=== PATIENT | female | born 1990 | race Two or more races ===

== ENCOUNTER 2024-06-19 11:32 | Emergency (ER) | payer MEDICAID, SELFPAY ==
[2024-06-19 11:33] VITALS: BMI 31.2
--- NOTE | 2024-06-19 12:33 | PC.NURSE ---
CALLED PATIENT IN THE LOBBY AND OUTSIDE, NO ANSWER RECEIVED FROM PATIENT.
--- NOTE | 2024-06-19 12:49 | PC.NURSE ---
STAFF CALLED PATIENT IN THE LOBBY AND OUTSIDE, NO ANSWER RECEIVED.
--- NOTE | 2024-06-19 13:08 | PC.NURSE ---
CALLED PATIENT IN THE LOBBY AND OUTSIDE, NO ANSWERS RECEIVED.
--- NOTE | 2024-06-19 13:14 | PC.NURSE ---
PT LBMS FROM CLAUDIA
== END 2024-06-19 13:12 | disposition left against medical advice (07) ==
LOC: SERX 13:20
PROVIDERS: Emergency Provider Family Medicine
DX: Z53.21 Procedure and treatment not carried out due to patient leaving prior to being seen by health care provider (principal)

== ENCOUNTER 2024-07-09 02:23 | Emergency (ER) | payer MEDICAID, SELFPAY ==
[2024-07-09 02:24] VITALS: BMI 31.4
[2024-07-09 02:30] VITALS: BP 117/62; PULSE 122; RESP 19; TEMP 37.2; O2SAT 100
--- NOTE | 2024-07-09 02:32 | EKG_ITS ---
[facility] (Formerly [facility])[3] Test Date: 2024-07-09 Pat Name: BRITTANY MCGEE Department: Room: - Gender: Female General Office Clerk: : 1990 Requested By: ED Temporary Provider Order Number: [id number] Reading MD: ED Temporary Provider Measurements Intervals [place] Rate: 107 P: 27 KS: 161 QRS: 3 QRSD: 94 T: 34 QT: 344 QTc: 460 Interpretive Statements SINUS TACHYCARDIA POSSIBLE ANTERIOR MYOCARDIAL INFARCTION , PROBABLY OLD [30 ms Q WAVE IN V3/V4, OR R < 0.2 mV IN V4] ABNORMAL RHYTHM ECG No previous ECG available for comparison /store/S0/[id number]/ecg/[id number].pdf
[2024-07-09] MEDS: NAPROXEN 250 MG TABLET 500 MG PO (03:25)
[2024-07-09] MEDS: METOCLOPRAMIDE 5 MG TABLET 10 MG PO (03:25)
[2024-07-09] MEDS: AMOXICILLIN/POT CLAV 875 TABLET 1 TAB PO (03:26)
--- NOTE | 2024-07-09 04:31 | PD.EDDENTL ---
ED Dental RME/HPI General Chief complaint: Headache Stated complaint: HEADACHE Time Seen by Provider: 07/09/24 03:01 Arrival date/time: 07/09/24 02:23 33F with no significant PMH presents to ED with 1 week of R-sided dental pain and BENNETT. Patient has been taking baby aspirins w/o relief. While in ED, patient had some SOB and crying/anxiety. Limitations: no limitations Related Data Previous Rx's ?Medication ?Instructions ?Recorded cyclobenzaprine 10 mg tablet 10 mg PO TID PRN muscle spasm #30 02/23/19 tabs hydrocodone 5 mg-acetaminophen 325 1 tab PO BID PRN pain #6 tabs 02/23/19 mg tablet (Lefors) ibuprofen 800 mg tablet 800 mg PO TID PRN pain #30 tabs 02/23/19 amoxicillin 500 mg tablet 500 mg PO TID #30 tabs 04/05/19 ibuprofen 600 mg tablet 600 mg PO Q6H PRN pain #60 tabs 04/05/19 amoxicillin 875 mg-potassium 1 tab PO BID 7 days #14 tabs 07/09/24 clavulanate 125 mg tablet Allergies Allergy/AdvReac Type Severity Reaction Status Date / Time No Known Allergies Allergy Verified 07/09/24 02:24 Review of Systems Review of Systems Systems Reviewed: All systems reviewed, normal except as documented Constitutional Constitutional: Reports system reviewed and no additional complaints, except as documented, Reports as per HPI, Denies fever(s) and Reports headache(s) ENT Ears, Nose, Mouth, and Throat: Reports as per HPI, Reports dental pain, Denies disequilibrium and Reports headache(s) Cardiovascular Cardiovascular: Reports system reviewed and no additional complaints, except as documented, Denies chest pain and Denies dyspnea Respiratory Respiratory: Reports system reviewed and no additional complaints, except as documented, Denies cough and Denies dyspnea Gastrointestinal Gastrointestinal: Reports system reviewed and no additional complaints, except as documented, Denies abdominal pain, Denies nausea and Denies vomiting Neurologic Neurologic: Reports system reviewed and no additional complaints, except as documented, Denies confusion, Denies disequilibrium and Reports headache(s) Psychiatric Psychiatric: Denies confusion Past Medical History Past Medical History NEUROLOGIC: Negative Neurological Disorders or Seizures CARDIAC: Negative Cardiac Disorders or Congestive Heart Failure RESPIRATORY: Negative Chronic Obstructive Pulmonary Disease (COPD) GASTROINTESTINAL: Negative Gastrointestinal Disorders, Hepatitis or Colorectal Cancer GENITOURINARY: Negative Genitourinary Disorders, Renal Disease or Prostate Cancer REPRODUCTIVE: Positive Previous Pregnancies; Negative Breast Cancer, Endometriosis, Genital Herpes, Gonorrhea, Pelvic Inflammatory Disease, Syphilis, Testicular Cancer or Uterine Prolapse MUSCULOSKELETAL: Negative Musculoskeletal Disorders, Bone Cancer or Carpal Tunnel Syndrome ENT: Negative Cataracts ENDOCRINE: Negative Endocrine Disorders, Diabetes Mellitus Type 1 or Diabetes Mellitus Type 2 HEMATOLOGIC: Negative Blood Disorders OTHER HISTORY: Negative Hospitalization, Autoimmune Disease, Down Syndrome, Developmental Delay, Shingles, Falls, Blood Transfusions, Blood Transfusion Reaction, Anesthesia Reactions, Organ Transplant, Chemotherapy, Radiation Therapy, Hyperbaric Therapy, MRSA, VRSA, Vancomycin-Resistant Enterococci, Human Immunodeficiency Virus (HIV), Chicken Pox, Measles, Mumps, Rubella ([place] Measles), Pertussis, Clostridium Difficile, Breast Cancer, Cervical Cancer, Colorectal Cancer, Lung Cancer, Ovarian Cancer, Prostate Cancer or Testicular Cancer Family History FAMILY HISTORY: Negative Family Psychiatric Problems, Family Respiratory Disorders, Family Cardiac Disorders, Family Gastrointestinal Problems, Family Cancer, Family Surgery or Family Anesthesia Reaction Surgical History SURGICAL: Positive Section (2 CSECTIONS); Negative Cardiac Surgery, Endocrine Surgery, Thyroidectomy, Ear Surgery, Tympanostomy Tube, Eye Surgery, Nose Surgery, Oral Surgery, Tonsillectomy, Adenoidectomy, Cochlear Implant, Corneal Transplant, Throat Surgery, Abdominal Surgery, Tracheostomy, Gastric Bypass Surgery, Gastrostomy, Bowel Surgery, Nephrectomy, Transurethral Resection, Joint Replacement, Amputation, Open Reduction Internal Fixation, Arthroscopy, Neurologic Surgery, Mastectomy, Lumpectomy, Hysterectomy, Tubal Ligation, Vasectomy or Organ Transplant Social History SMOKING STATUS: Never smoker ED Exam General Limitations: Present no limitations General appearance: Present alert, in no apparent distress and anxious Head Head exam: Present atraumatic Eye Eye exam: Present normal appearance, PERRL and EOMI ENT ENT exam: Present mucous membranes moist Expanded ENT Exam Teeth exam: Present dental tenderness # (2) and gingival swelling Neck Neck exam: Present normal inspection, full ROM and trachea midline Chest Chest inspection: Present normal inspection and symmetric chest wall rise Respiratory Respiratory exam: Present normal lung sounds bilaterally Cardiovascular Cardiovascular exam: Present regular rate, normal rhythm and normal heart sounds Abdominal Exam Abdominal exam: Present soft and normal bowel sounds Extremities Exam Extremities exam: Present normal inspection and full ROM Back Exam Back exam: Present normal inspection and full ROM Neurological Exam Neurological exam: Present alert, oriented X3 and CN II-XII intact Psychiatric Psychiatric exam: Present normal affect and normal mood Skin Skin exam: Present warm, dry, intact and normal color Course Quality Measures none Orders Category Date Time Status EKG (ED ONLY) *Do not use* NOW Care 07/09/24 02:32 Completed EKG (ED Only) Stat Exams 07/09/24 02:32 Draft Amoxicillin/Pot Clav 875 [Augmentin 875] Med 07/09/24 03:11 Discontinued 1 tab PO X1 ONE Diazepam [Valium] Med 07/09/24 03:02 Discontinued 5 mg PO X1 ONE Metoclopramide [Reglan] Med 07/09/24 03:02 Discontinued 10 mg PO X1 ONE Naproxen [Naprosyn] Med 07/09/24 03:02 Discontinued 500 mg PO X1 ONE Vital Signs Vital signs: Vital Signs Temperature 98.9 F 07/09/24 02:30 Pulse Rate 122 H 07/09/24 02:30 Respiratory Rate 19 07/09/24 02:30 Blood Pressure 117/62 07/09/24 02:30 Pulse Oximetry (%) 100 07/09/24 02:30 Oxygen Delivery Method Room Air 07/09/24 02:30 O2 at 100% on RA and WNLs Dental / Oral MDM Narrative MDM Narrative:: 33F with no significant PMH presents to ED with 1 week of R-sided dental pain and BENNETT. Patient has been taking baby aspirins w/o relief. While in ED, patient had some SOB and crying/anxiety. Physical exam reveals R dental tenderness and gingival swelling. Normal pupil response and EOM. RRR. Normal WOB. Patient is afebrile, alert, but anxious/crying. EKG is sinus tach of 107. Patient felt better after meds. Patient has dentist appt tomorrow. Patient data External records reviewed:: [facility] previous records Clinical information provided by:: patient Social determinants that could affect healthcare access:: none Patient has the following chronic illnesses:: none How is presenting disease/condition affected by chronic disease/condition?: no chronic disease Evaluation data The following diagnostics were reviewed and interpreted by me:: EKG tracing(s) Lab and/or radiology exams considered but not ordered:: ordered Interpretation Summary: above Medications / Prescriptions Medications or Prescriptions considered but not ordered:: ordered Medication administrations:: Medication Administration History Discontinued Medications Amoxicillin/Clavulanate Potassium (Amoxicillin/Pot Clav 875 Tablet) 1 tab PO X1 ONE Stop: 07/09/24 03:12 Last Admin: 07/09/24 03:26 Dose: 1 tab Documented By: TED Diazepam (Diazepam 5 Mg Tablet) 5 mg PO X1 ONE Stop: 07/09/24 03:03 Last Admin: 07/09/24 03:26 Dose: Not Given Documented By: TED Non-Admin Reason: Cancelled by Provider Metoclopramide HCl (Metoclopramide 5 Mg Tablet) 10 mg PO X1 ONE Stop: 07/09/24 03:03 Last Admin: 07/09/24 03:25 Dose: 10 mg Documented By: TED Naproxen (Naproxen 250 Mg Tablet) 500 mg PO X1 ONE Stop: 07/09/24 03:03 Last Admin: 07/09/24 03:25 Dose: 500 mg Documented By: TED above Consultations Consultation(s) initiated? (list below): No Diagnosis Dental Differential Diagnosis: gingival abscess, dental caries, toothache, dental abscess, fracture of tooth and aphthous ulcer Most likely diagnosis given after review of the tests above:: dental infection Admission Indicated Admission indicated?: not indicated Admission Request Was there a request for admission?: No Disposition Plan Disposition Plan: Discharge Discharge Attestation Discharge Attestation: The patient and all family members were given an opportunity to ask questions and understood the discharge instructions. Discharge instructions specifically effects, indications for sooner follow up or return to the emergency department, and the expected course of current diagnosis. Patient condition: Stable Discharge Plan Plan Patient Disposition: HOME (Self Care) Disposition Comment: Stable Prescriptions/Referrals Prescriptions/Med Rec: New amoxicillin-pot clavulanate 875-125 mg tablet 1 tab PO BID 7 Days Qty: 14 0RF No Action ibuprofen 600 mg tablet 600 mg PO Q6H PRN (Reason: pain) Qty: 60 0RF amoxicillin 500 mg tablet 500 mg PO TID Qty: 30 0RF cyclobenzaprine 10 mg tablet 10 mg PO TID PRN (Reason: muscle spasm) Qty: 30 0RF ibuprofen 800 mg tablet 800 mg PO TID PRN (Reason: pain) Qty: 30 0RF hydrocodone-acetaminophen [Lefors] 5-325 mg tablet 1 tab PO BID MDD 10mg PRN (Reason: pain) Qty: 6 0RF Referrals: Garo Suresh MD [Primary Care Provider] - In 1 week Problem List Clinical Impression: Dental infection Patient/Caregiver Discharge Instructions Education Materials: ED Tooth Abscess Additional Instructions: Please follow-up with PCP within 24-48 hours and return immediately if symptoms worsen. NSAIDs like ibuprofen/Aleve tend to work better for this type of pain. Those are preferable to aspirin. Mention to dentist about ABX already on. Print Language: Afghan Stand Alone Forms: Patient Portal Info Letter PA/E LEARNING COORDINATOR Supervising Physician PA/E LEARNING COORDINATOR Supervising Physician: Dr. Hurtado
[2024-07-09 04:38] VITALS: PULSE 108; RESP 16; O2SAT 100
== END 2024-07-09 04:39 | disposition home or self-care (01) ==
PROVIDERS: Emergency Provider Emergency Medicine; PCP Family Medicine
DX: K04.7 Periapical abscess without sinus (principal); R00.0 Tachycardia, unspecified
CPT/HCPCS: 93005; 99283; A9270